=== PATIENT | male | born 1950 | race Caucasian/White ===

== ENCOUNTER 2017-06-08 21:59 | Emergency (ER) | payer OTHER ==
[~2017-06-08] VITALS: Ht 188 cm; Wt 101.8 kg
[2017-06-09] MEDS ORDERED: KEFLEX500 MG PO (00:20)
[2017-06-09] MEDS ORDERED: OXAYDO5 MG PO (00:25)
[2017-06-09 02:35] VITALS: BP 150/74
== END 2017-06-09 02:46 ==
LOC: EME 21:59
DX: S68.021A Partial traumatic metacarpophalangeal amputation of right thumb, initial encounter (principal); W23.0XXA Caught, crushed, jammed, or pinched between moving objects, initial encounter; Z23 Encounter for immunization
CPT/HCPCS: 73130; 99281; 99284; J0696; J3010